=== PATIENT | female | born 1985 | race African-American/Black ===

== ENCOUNTER → 2016-06-06 | Outpatient (CLI) | payer MEDICAID ==
[~2016-06-06] MED LIST: COLACE-DPS100 MG PO; LAN-O-SOOTHE7 GM TP; MOTRIN-DPS800 MG PO; NIPPLECREAM TP; PERCOCET 5 DPS1 TAB PO; PRENATAL VIT1 TAB PO
== END | disposition home or self-care (01) ==
LOC: RAD.S 06-02 13:00
DX: Z36 Encounter for antenatal screening of mother (principal); Z3A.33 33 weeks gestation of pregnancy

== ENCOUNTER 2016-06-19 05:50 | Inpatient (IN) | payer MEDICAID ==
[2016-06-22] MEDS ORDERED: MOTRIN-DPS800 MG PO (12:55)
[2016-06-22] MEDS ORDERED: COLACE-DPS100 MG PO (12:55)
[2016-06-22] MEDS ORDERED: PRENATAL VIT1 TAB PO (12:55)
[2016-06-22] MEDS ORDERED: LAN-O-SOOTHE7 GM TP (12:56)
[2016-06-22] MEDS ORDERED: PERCOCET 5 DPS1 TAB PO (12:56)
[2016-06-22] MEDS ORDERED: NIPPLECREAM TP (12:56)
--- NOTE | 2016-06-26 06:29 | HP ---
ADMIT: 06/19/2016 RM/LOC: 224 [facility] MR#: [id number] [address] [facility] [address] [place], [place] [address] [place] I [address] [place], [place] [id number] Pre-OP History and Physical SEX: F AGE: 31 : 1985 DATE OF SERVICE: For her planned taking place on 06/19/2016. CHIEF COMPLAINT: Desire for repeat section. HISTORY OF PRESENT ILLNESS: The patient is a 31-year-old, 5, para 3-0- 1-3 [place] female, who presents for a repeat section. She presented late for care at 20 weeks gestation. Dates are based on ultrasound as it was discordant with her LMP using of ACOG current recommendations. She had spotty care after that with a few longer absences. Did develop mild anemia and has had some mild gastritis. She took omeprazole for as needed. Has had 2 prior sections. PAST MEDICAL HISTORY: The patient had sections in 2008 and then again in 2011. She has had one miscarriage. She denies any other chronic medical issues, hospitalizations, or surgeries. SOCIAL HISTORY: She is to the father of her 2 other children. Denies any tobacco, alcohol, or drug use. She does not work outside the home. FAMILY HISTORY: She is unaware of any medical issues that run in the family. MEDICATIONS: 1. Omeprazole 20 mg daily as needed. 2. Ferrous sulfate 325 mg daily. 3. vitamin daily. ALLERGIES: NO KNOWN DRUG ALLERGIES. PHYSICAL EXAMINATION: VITAL SIGNS: As of her last office visit on 06/15/2016; the patient weighed 149 pounds, blood pressure 108/72, heart tones around 130. HEART: Regular without murmurs. LUNGS: Sound clear to auscultation bilaterally. ABDOMEN: Gravid with an estimated weight of 6-1/2 to 7 pounds. EXTREMITIES: Have no edema. No posterior calf tenderness. LABORATORY DATA: Last CBC on 06/01 showed a hemoglobin of 11.8, platelets were 138,000. She has not had any significant proteinuria. Her blood type is A positive. Antibody screen negative. She is hepatitis B surface antigen negative, rubella immune, syphilis negative, gonorrhea and chlamydia were ADMIT: 06/19/2016 RM/LOC: 224 [facility] MR#: [id number] [address] [address] [place] I [address] [place] [id number] Pre-OP History and Physical SEX: F AGE: 31 : 1985 negative and her 1 hour glucose was just 93. She is group B strep positive. ASSESSMENT: 1. Intrauterine at 39 week's gestation based on best estimated due date. 2. Prior section. 3. Mild chronic iron deficiency anemia. 4. Mild gastritis. PLAN: We will proceed with repeat low-transverse section. The patient has been counseled on risks, benefits, and alternatives to procedure and has agreed to proceed. Dodie Gan MD/ zachary JOB #: [id number] CC: Dodie Gan, Attending Physician Dodie Gan, Family Physician
--- NOTE | 2016-07-02 13:03 | OR ---
ADMIT: 06/19/2016 RM/LOC: 224 [facility] MR#: [id number] [address] [facility] [address] [place], [place] [address] [place] I [address] [place], [place] [address] Operative/Delivery Room Report SEX: F AGE: 31 : 1985 SURGERY DATE: 06/19/2016 SURGEON: Leesa Mclain MD PREOPERATIVE DIAGNOSES: 1. Term intrauterine at 39 weeks and 0 days. 2. Late presentation to care. 3. History of 2 prior sections. POSTOPERATIVE DIAGNOSES: 1. Term intrauterine at 39 weeks and 0 days. 2. Late presentation to care. 3. History of 2 prior sections. PROCEDURES: Repeat low-transverse section. HANDBAG DESIGNER: Dodie Gan MD ANESTHESIA: Spinal. ANTIBIOTICS: 2 g of Ancef. ESTIMATED BLOOD LOSS: 800 mL. IV FLUIDS: 1400 mL of crystalloid. URINE OUTPUT: 100 mL. FINDINGS: Viable male with scores of 6 and 7. Weight of 7 pounds 3.5 ounces (3.3 kg). Intact placenta with 3-vessel cord. Normal- appearing uterus, fallopian tubes, and ovaries bilaterally. No significant intraabdominal adhesions or significant adhesions between the bladder and the lower uterine segment. Subcutaneous tissue was slightly thickened and scarred just overlying fascia. INDICATIONS FOR PROCEDURE: This is a 31-year-old, G5, P3-0-1-3 who presents to Labor and Delivery at 39 weeks by 24 week ultrasound, for scheduled repeat low-transverse section. Her is complicated by history of 2 prior sections and inadequate care. The risks, benefits, and alternatives were discussed and documented elsewhere. Please see clinic consult note for details. PROCEDURE IN DETAIL: The patient was taken to the operating room, spinal anesthesia was placed. She was placed in dorsal supine position with a leftward tilt. She was prepped and draped in the usual sterile fashion. A time-out was performed. Anesthesia was found to be adequate. A Pfannenstiel incision was then made over her previous scar and carried down to the underlying fascia. Fascia was incised through the midline and fascial incision was extended bilaterally using scissors. Chris's x2 were placed on ADMIT: 06/19/2016 RM/LOC: 224 [facility] MR#: [id number] [address] [facility] [address] [place], [place] [address] AM[place] I [address] [place] [address] Operative/Delivery Room Report SEX: F AGE: 31 : 1985 the superior aspect and rectus were dissected off the fascia with blunt dissection. Midline adhesions were taken down sharply with Szymanski. This was repeated inferiorly. Rectus muscles were then divided in the midline and peritoneum was identified and entered bluntly. Peritoneal incision was then extended bluntly. Bladder blade was then placed with good visualization of the lower uterine segment. Bladder flap was created with Metzenbaum scissors and developed digitally. Bladder blade was replaced. Clean scalpel was then used to make a hysterotomy incision in the lower uterine segment. This was extended bluntly. Clear fluid was noted upon amniotomy. The incision was extended. head was then grasped, flexed, and brought to the level of the incision. Nuchal cord x1 was noted. The rest of the infant then delivered. Delayed cord clamping was employed for 1 minute. The cord was clamped and cut. Cord blood was collected and infant was handed to waiting nursing team. Placenta then delivered with gentle traction. Uterus was exteriorized and cleared of all remaining clots and debris. 0 Vicryl was used in a running locked fashion to close the hysterotomy incision. Single figure- of-eight suture was needed in the midline for hemostasis. Posterior cul-de- sac was then irrigated. Uterus was returned to the abdomen. Gutters were examined and cleared of clots and debris with a clean wet lap bilaterally. Again, hysterotomy incision remained hemostatic. No evidence of injury to the bladder was noted. Rectus muscles were inspected and noted to be hemostatic. Fascia was then closed using an 0 PDS from the left angle to the right angle. Subcutaneous tissue was then closed using 2-0 Vicryl. The skin was closed with 4-0 Polysorb in a running fashion. Sponge and instrument counts were correct x2. COMPLICATIONS: None. VTE PROPHYLAXIS: Sequential compression devices. DISPOSITION: Mom stable to recovery room. to nursery. Leesa Mclain MD/ zachary JOB #: [id number] CC: Dodie Gan, Attending Physician Dodie Gan, Family Physician
--- NOTE | 2016-07-15 09:12 | DS ---
ADMIT: 06/19/2016 RM/LOC: 224 [facility] MR#: [id number] [address] [facility] [address] [place], [place] [address] AM[place] I [address] [place], [place] [address] General Discharge Summary SEX: F AGE: 31 : 1985 ADMISSION DATE: 06/19/2016 DISCHARGE DATE: 06/21/2016 FINAL DIAGNOSES: 1. Term intrauterine . 2. History of prior section. 3. Poor care. 4. Mild thrombocytopenia of . REASON FOR ADMISSION: The patient is a 31-year-old, 5, para 3-0-1-3 [place]er female, who presented for repeat section at 39 weeks' gestation. She had had late care and missed several visits as well. Had issues with reflux and iron deficiency anemia during the , but no other complications. Had had 2 prior sections. HOSPITAL COURSE: The patient was admitted and underwent a repeat low transverse section with Dr. Mclain on 06/19/2016. No complications during the procedure, and she delivered a healthy male . Her course was uncomplicated. Hemoglobin dropped to 10.0 on postop day 1. She was discharged on 06/21 with following medications: 1. Colace 100 mg b.i.d. 2. Motrin 800 mg q.8 hours p.r.n. 3. Percocet 5, 1 to 2 every 4 [address] needed[address] 4. Dr. Goodrich's nipple cream and Lansinoh as needed. Will stay on her vitamin as well and will follow up with me in a week for an incision check. Dodie Gan MD/ zachary JOB #: [id number] CC: Dodie Gan MD, Attending Physician Dodie Gan MD, Family Physician
== END 2016-06-21 15:20 | disposition home or self-care (01) | DRG 765 ==
LOC: 2LDRP 05:50 → BC 05:50 → 2LDRP 06:02
PROVIDERS: ADMIT Family Medicine
PROC: 10D00Z1 Extraction of Products of Conception, Low, Open Approach (ICD-10-PCS; principal; 2016-06-19)
DX: O34.211 Maternal care for low transverse scar from previous cesarean delivery (principal); O72.3 Postpartum coagulation defects; D69.59 Other secondary thrombocytopenia; O69.81X0 Labor and delivery complicated by cord around neck, without compression, not applicable or unspecified; O99.824 Streptococcus B carrier state complicating childbirth; O99.62 Diseases of the digestive system complicating childbirth; K29.70 Gastritis, unspecified, without bleeding; O99.02 Anemia complicating childbirth; D50.9 Iron deficiency anemia, unspecified; Z3A.39 39 weeks gestation of pregnancy; Z37.0 Single live birth